=== PATIENT | male | born 1960 | race Caucasian/White ===

== ENCOUNTER 2020-06-12 13:10 | Observation (INO) ==
[2020-06-12] MEDS ORDERED: Aspirin EC 81 mg TAB.EC (enteric coated) PO ONE (13:28)
[2020-06-12 14:28] LABS: ABS Basophils 0.1 10^3/ul (0-0.2); ABS Eosinophils 0.4 10^3/ul (0-0.6); ABS Lymphocytes 1.9 10^3/ul (1.0-4.8); ABS Monocytes 0.6 10^3/ul (0-0.8); ABS Neutrophils 5.7 10^3/ul (1.5-7.7); Eosinophil % 4.7 %; Hematocrit 47 % (42-52); Hemoglobin 16.2 g/dL (14.0-18.0); Mean Corpuscular HGB Conc 34 g/dL (31-36); Mean Corpuscular Hemoglobin 29 pg (27-31); Mean Corpuscular Volume 85 fL (80-94); Mean Platelet Volume 8.6 fL (7.4-10.4); Nucleated Red Blood Cells % 0.2; Platelet Count 202 10^3/uL (150-450); Red Blood Count 5.54 10^6 /uL (4.18-5.48); Red Cell Distribution Width 14 % (10-15); White Blood Count 8.7 10^3/uL (3.5-10.8)
[2020-06-12 14:34] LABS: INR 1.03 (0.82-1.09)
[2020-06-12 14:47] LABS: ALT 19 U/L (7-52); AST 22 U/L (13-39); Albumin 4.6 g/dL (3.2-5.2); Albumin/Globulin Ratio 1.7 (1-3); Alkaline Phosphatase 66 U/L (34-104); Anion Gap 6 mmol/L (2-11); BUN/Creatinine Ratio 16.3 (8-20); Blood Urea Nitrogen 17 mg/dL (6-24); CO2 Carbon Dioxide 28 mmol/L (22-32); Calcium 9.9 mg/dL (8.6-10.3); Chloride 104 mmol/L (101-111); Creatine Kinase 229 U/L (10-223); EGFR African American 87.6 (>60); EGFR Non-African American 72.4 (>60); Globulin 2.7 g/dL (2-4); Glucose 96 mg/dL (70-100); Magnesium 2.2 mg/dL (1.9-2.7); Sodium 138 mmol/L (135-145); Total Protein 7.3 g/dL (6.4-8.9)
[2020-06-12 14:51] LABS: CKMB ng/mL 2.8 ng/mL (0.6-6.3)
[2020-06-12] MEDS ORDERED: Iohexol 350 (CONTRAST) 500 ML MDV IV ONE (17:15)
[2020-06-12] MEDS ORDERED: Ondansetron 4 mg VIAL 2 MG/ML 2 ml VIAL IV PRN (18:32)
[2020-06-12] MEDS ORDERED: Enoxaparin 40 MG/0.4 ML SYR SUBCUT SCH (19:00)
[2020-06-12 19:17] LABS: C Reactive Protein < 1.00 mg/L (<8.01)
[2020-06-12 20:07] LABS: Erythrocyte Sed Rate 0 mm/Hr (0-19)
[2020-06-13 06:26] LABS: ABS Basophils 0.1 10^3/ul (0-0.2); ABS Eosinophils 0.5 10^3/ul (0-0.6); ABS Lymphocytes 2.6 10^3/ul (1.0-4.8); ABS Monocytes 0.5 10^3/ul (0-0.8); ABS Neutrophils 6.3 10^3/ul (1.5-7.7); Eosinophil % 4.7 %; Hematocrit 45 % (42-52); Hemoglobin 15.4 g/dL (14.0-18.0); Lymphocyte % 25.8 %; Mean Corpuscular HGB Conc 34 g/dL (31-36); Mean Corpuscular Hemoglobin 29 pg (27-31); Mean Corpuscular Volume 85 fL (80-94); Mean Platelet Volume 8.3 fL (7.4-10.4); Platelet Count 185 10^3/uL (150-450); Red Blood Count 5.29 10^6 /uL (4.18-5.48); Red Cell Distribution Width 14 % (10-15); White Blood Count 9.9 10^3/uL (3.5-10.8)
[2020-06-13 06:45] LABS: BUN/Creatinine Ratio 17.1 (8-20); Calcium 9.5 mg/dL (8.6-10.3); EGFR African American 81.2 (>60); EGFR Non-African American 67.1 (>60); HDL Cholesterol 34.8 mg/dL; Magnesium 2.2 mg/dL (1.9-2.7); Potassium 4.2 mmol/L (3.5-5.0)
[2020-06-13 06:48] LABS: Troponin I 0.01 ng/mL (<0.03)
[2020-06-13] MEDS ORDERED: Aspirin EC 81 mg TAB.EC (enteric coated) PO SCH (09:00)
[2020-06-13 14:58] VITALS: BP 116/70
== END 2020-06-13 15:50 | disposition home or self-care (01) ==
LOC: MEDTELE 13:10 → ED 13:10 → MEDTELE 19:39
PROVIDERS: ADMIT Student in an Organized Health Care Education/Training Program; ATTEND Internal Medicine